=== PATIENT | female | born 1950 | race Caucasian/White ===

== ENCOUNTER 2017-09-29 08:47 | Outpatient (CLI) | payer BC, MEDICARE | END 2017-09-29 08:48 | disposition home or self-care (01) | LOC: BICMAMMO 08:47 | PROVIDERS: ATTEND Obstetrics & Gynecology | DX: Z12.31 Encounter for screening mammogram for malignant neoplasm of breast (principal); Z80.3 Family history of malignant neoplasm of breast | CPT/HCPCS: 77063; 77067 ==

== ENCOUNTER 2018-03-04 10:37 | Outpatient (CLI) | payer BC, MEDICARE ==
--- NOTE | 2018-03-04 12:48 | RAD ---
TWO VIEWS CHEST: COMPARISON: None. INDICATION: Cough. FINDINGS: There is pectus excavatum producing increased density of the paramediastinal region and distortion of the cardiac silhouette. Lungs are hyperinflated. No effusion. IMPRESSION: 1. Pectus excavatum. 2. No lobar consolidation. POS: [facility]
== END 2018-03-04 10:38 | disposition home or self-care (01) ==
LOC: RAD 10:37
PROVIDERS: ATTEND Internal Medicine
DX: R05 Cough (principal); Q67.6 Pectus excavatum
CPT/HCPCS: 71046

== ENCOUNTER 2018-03-23 14:40 | Outpatient (CLI) | payer BC, MEDICARE ==
[2018-03-23 16:25] LABS: #Basophils 0.1 thou/uL (0.0-0.2); #Eosinphils 0.1 thou/uL (0.0-0.7); #Monocytes 0.6 thou/uL (0.11-0.59); #Neutrophils 2.5 thou/uL (1.40-6.50); %Basophils 1.4 % (0.0-1.0); %Eosinophils 2.4 % (0.0-10.0); %Lymphocytes 37.8 % (21.0-51.0); %Monocytes 11.3 % (0.0-10.0); %Neutrophils 47.1 % (42.0-75.0); Hemoglobin 12.6 g/dL (12.0-16.0); Mean Corpuscular HGB CONC 32.8 g/dL (32.0-36.0); Mean Corpuscular Hemoglobin 30.6 pg (27.0-31.0); Mean Corpuscular Volume 93.1 fL (78.0-98.0); Mean Platelet Volume 7.5 fL (7.4-10.4); Platelet Count 199 thou/uL (130-400); RBC Distribution Width 10.9 % (11.5-14.5); Red Blood Cell (RBC) Count 4.12 mill/uL (4.20-5.40); White Blood Cell (WBC) Count 5.3 thou/uL (4.8-10.8)
[2018-03-23 16:35] LABS: ALT (SGPT) 12 U/L (8-55); AST (SGOT) 18 U/L (5-34); Albumin 4.2 g/dL (3.4-4.8); Alkaline Phosphatase 69 U/L (40-150); Anion Gap 13 mmol/L (10-20); BUN (Urea Nitrogen) 14 mg/dL (9.8-20.1); Bilirubin, Total 0.3 mg/dL (0.2-1.2); Calc. Creatinine Clearance 0 mL/min (70-130); Calcium 9.1 mg/dL (7.8-10.44); Carbon Dioxide 24 mmol/L (23-31); Chloride 106 mmol/L (98-107); Estimated GFR-MDRD 67; Globulin 2.5 g/dL (2.4-3.5); Glucose 87 mg/dL (80-115); Potassium 3.6 mmol/L (3.5-5.1); Protein, Total 6.7 g/dL (6.0-8.3); Sodium 139 mmol/L (136-145)
== END 2018-03-23 14:41 | disposition home or self-care (01) ==
LOC: LABBT 14:40
PROVIDERS: ATTEND Internal Medicine Cardiovascular Disease
DX: Z01.812 Encounter for preprocedural laboratory examination (principal); R94.39 Abnormal result of other cardiovascular function study; R07.9 Chest pain, unspecified
CPT/HCPCS: 80053; 85025

== ENCOUNTER → 2018-03-25 | Day surgery (SDC) | payer BC, MEDICARE ==
[2018-03-23 14:57] VITALS: BMI 21.2
[~2018-03-25] MED LIST: Diazepam 5 MG TAB ONE; Fentanyl 100 MCG/2 ML VIAL ONE; Iopamidol 370 76% 100 ML VIAL ONE; Midazolam HCl 2 mg/2 ml Vial ONE; traMADol HCl 50 MG TAB ONE
== END ==
LOC: CCL 05:52
PROVIDERS: ATTEND Internal Medicine Cardiovascular Disease
PROC: B2111ZZ Fluoroscopy of Multiple Coronary Arteries using Low Osmolar Contrast (ICD-10-PCS; principal; 2018-03-25)
PROC: 4A023N7 Measurement of Cardiac Sampling and Pressure, Left Heart, Percutaneous Approach (ICD-10-PCS; principal; 2018-03-25)
DX: R07.89 Other chest pain (principal); R94.39 Abnormal result of other cardiovascular function study; Z79.899 Other long term (current) drug therapy
CPT/HCPCS: 76942; 93458; 99152; C1769; J1644; J2250; J3010

== ENCOUNTER 2019-03-18 14:38 | Outpatient (CLI) | payer MEDICARE, BC | END 2019-03-18 14:39 | disposition home or self-care (01) | LOC: CTENTCT 14:38 | PROVIDERS: ATTEND Otolaryngology Plastic Surgery within the Head & Neck | DX: J01.80 Other acute sinusitis (principal) | CPT/HCPCS: 70486 ==

== ENCOUNTER 2021-01-25 05:36 | Day surgery (SDC) | payer MEDICARE ==
[2021-01-24 09:58] VITALS: BMI 20.3
[2021-01-25] MEDS ORDERED: Phenylephrine 2.5% Ophth Soln 5 ML BOT ONE (06:05)
[2021-01-25] MEDS ORDERED: Cyclopentolate 1% Opth Drop 2 ML BOT ONE (06:05)
[2021-01-25] MEDS ORDERED: Fentanyl 100 MCG/2 ML VIAL ONE (06:13)
[2021-01-25] MEDS ORDERED: PROPOFOL 20 ML ONE (06:13)
[2021-01-25] MEDS ORDERED: Midazolam HCl 2 mg/2 ml Vial ONE (06:13)
[2021-01-25] MEDS ORDERED: EPINEPHrine 0.3 MG in Ophthalmic Irrigation Solution 500 ML IRR SCH (06:15)
[2021-01-25] MEDS ORDERED: Lidocaine 4% PF 5 ML AMP ONE (07:21)
[2021-01-25] MEDS ORDERED: CEFAZOLIN 1 GM VIAL ONE (07:21)
[2021-01-25] MEDS ORDERED: Maxitrol 0.1% Opth Oint 3.5 GM TUBE ONE (07:21)
[2021-01-25] MEDS ORDERED: Triamcinolone 40 MG/ML VIAL ONE (07:21)
[2021-01-25] MEDS ORDERED: Lidocaine 1% PF 5 ML VIAL ONE (07:21)
[2021-01-25] MEDS ORDERED: Bupivacaine PF 0.75% SDV 10 ML ONE (07:21)
== END 2021-01-25 08:57 | disposition home or self-care (01) ==
LOC: SDC 05:36
PROVIDERS: ATTEND Ophthalmology Retina Specialist
PROC: 08T53ZZ Resection of Left Vitreous, Percutaneous Approach (ICD-10-PCS; principal; 2021-01-25)
PROC: 08NF3ZZ Release Left Retina, Percutaneous Approach (ICD-10-PCS; 2021-01-25)
DX: H43.312 Vitreous membranes and strands, left eye (principal)
CPT/HCPCS: J0171; J0690; J2250; J2704; J3010; J3301; J3490

== ENCOUNTER 2021-03-15 05:32 | Day surgery (SDC) | payer MEDICARE ==
[2021-03-15] MEDS ORDERED: EPINEPHrine 0.3 MG in Ophthalmic Irrigation Solution 500 ML IRR SCH (06:00)
[2021-03-15] MEDS ORDERED: Phenylephrine 2.5% Ophth Soln 5 ML BOT ONE (06:03)
[2021-03-15] MEDS ORDERED: Cyclopentolate 1% Opth Drop 2 ML BOT ONE (06:04)
[2021-03-15] MEDS ORDERED: Midazolam HCl 2 mg/2 ml Vial ONE (06:50)
[2021-03-15] MEDS ORDERED: PROPOFOL 20 ML ONE (06:50)
[2021-03-15] MEDS ORDERED: Bupivacaine PF 0.75% SDV 10 ML ONE (07:15)
[2021-03-15] MEDS ORDERED: Maxitrol 0.1% Opth Oint 3.5 GM TUBE ONE (07:15)
[2021-03-15] MEDS ORDERED: Triamcinolone 40 MG/ML VIAL ONE (07:15)
[2021-03-15] MEDS ORDERED: CEFAZOLIN 1 GM VIAL ONE (07:15)
[2021-03-15] MEDS ORDERED: Lidocaine 1% PF 5 ML VIAL ONE (07:15)
[2021-03-15] MEDS ORDERED: Lidocaine 4% PF 5 ML AMP ONE (07:15)
== END 2021-03-15 08:10 | disposition home or self-care (01) ==
LOC: SDC 05:32
PROVIDERS: ATTEND Ophthalmology Retina Specialist
PROC: 08T43ZZ Resection of Right Vitreous, Percutaneous Approach (ICD-10-PCS; principal; 2021-03-15)
PROC: 08NE3ZZ Release Right Retina, Percutaneous Approach (ICD-10-PCS; 2021-03-15)
DX: H43.391 Other vitreous opacities, right eye (principal); Z79.899 Other long term (current) drug therapy
CPT/HCPCS: J0171; J0690; J2250; J2704; J3301; J3490